=== PATIENT | male | born 1940 ===

== ENCOUNTER → 2017-12-01 | Emergency (ER) | payer OTHER ==
[~2017-12-01] VITALS: Ht 175.3 cm; Wt 86.2 kg
[~2017-12-01] MED LIST: GABAPENTIN300 MG; GLIMEPIRIDE4 MG; LOTREL 5-20 MG1 CAP; TAMS0.4C; TOPROL XL50 M1
== END | disposition home or self-care (01) ==
LOC: ER 10:11
DX: K58.8 Other irritable bowel syndrome (principal)